=== PATIENT | female | born 1970 | race Caucasian/White ===

== ENCOUNTER 2019-09-11 11:07 | Emergency (ER) | payer OTHER ==
[2019-09-11] MEDS ORDERED: Iopamidol-370 76% 500 ML 1 ML ONE (11:35)
[2019-09-11 12:12] LABS: Bacteria/HPF None Seen HPF (None Seen); Bilirubin 2+ (Negative); Blood, Urine Negative (Negative); Clarity Clear (Clear); Glucose, Urine (Dipstick) Normal (Negative); Leukocyte Negative Leu/uL (Negative); Nitrite 2+ (Negative); Protein, Urine (Dipstick) Negative (Neg-Trace); RBC/HPF 0-3 HPF (0-3); Urobilinogen 6 mg/dL (Less than 2); WBC/HPF 0-3 HPF (0-3)
[2019-09-11 12:30] LABS: #Basophils 0.1 thou/uL (0.0-0.2); #Eosinphils 0.3 thou/uL (0.0-0.7); #Lymphocytes 2.5 thou/uL (1.20-3.40); #Monocytes 0.4 thou/uL (0.11-0.59); #Neutrophils 4.7 thou/uL (1.40-6.50); %Eosinophils 4.3 % (0.0-10.0); %Lymphocytes 31.3 % (21.0-51.0); %Monocytes 4.8 % (0.0-10.0); %Neutrophils 58.6 % (42.0-75.0); Hemoglobin 14.8 g/dL (12.0-16.0); Mean Corpuscular HGB CONC 34.2 g/dL (32.0-36.0); Mean Corpuscular Hemoglobin 32.3 pg (27.0-31.0); Mean Corpuscular Volume 94.4 fL (78.0-98.0); Mean Platelet Volume 6.8 fL (7.4-10.4); Platelet Count 390 thou/uL (130-400); RBC Distribution Width 11.7 % (11.5-14.5); Red Blood Cell (RBC) Count 4.57 mill/uL (4.20-5.40)
[2019-09-11 13:00] LABS: ALT (SGPT) 16 U/L (8-55); AST (SGOT) 18 U/L (5-34); Albumin 4.1 g/dL (3.5-5.0); Alkaline Phosphatase 102 U/L (40-110); Anion Gap 11 mmol/L (10-20); BUN (Urea Nitrogen) 8 mg/dL (7.0-18.7); Bilirubin, Total 0.3 mg/dL (0.2-1.2); Calc. Creatinine Clearance 0 mL/min (70-130); Calcium 8.9 mg/dL (7.8-10.44); Carbon Dioxide 23 mmol/L (22-29); Chloride 106 mmol/L (98-107); Estimated GFR-MDRD 86; Glucose 89 mg/dL (70-105); Lipase 24 U/L (8-78); Protein, Total 7.1 g/dL (6.0-8.3); Sodium 136 mmol/L (136-145)
--- NOTE | 2019-09-11 13:00 | CT ---
CT ABDOMEN AND PELVIS WITH IV CONTRAST: INDICATIONS: Abdominal pain. Bladder pain and pressure. FINDINGS: The lung bases are clear. The liver, spleen and pancreas are unremarkable. The stomach and duodenum a re unremarkable. The adrenal glands are normal. The kidneys are unremarkable. No hydronephrosis or urinary tract calculus. The urinary bladder is mil dly distended and appears unremarkable. Small bowel loops are of normal caliber. The appendix appears normal. The colon is unremarkable. The aorta is of normal caliber. No adenopathy or free fluid. Images through the pelvis show evidence of a hysterectomy. Osseous structures are unremarkable. IMPRESSION: No evidence of acute process. POS: [facility]
[2019-09-11] MEDS ORDERED: cefTRIAXone\\ROCEPHIN 1 GM VIAL ONE (13:53)
[2019-09-11] MEDS ORDERED: Ketorolac Tromethamine 30 MG/ML VIAL ONE (13:53)
[2019-09-11] MEDS ORDERED: Sodium Chloride 0.9% 100 ML ONE (13:54)
== END 2019-09-11 15:54 | disposition home or self-care (01) ==
LOC: EDSEX 11:07 → ERS 11:07
DX: N39.0 Urinary tract infection, site not specified (principal)
CPT/HCPCS: 74177; 80053; 81003; 81015; 83690; 85025; 87086; 96361; 96365; 96375; J0696; J1885; J3490; Q9967

== ENCOUNTER 2019-09-22 06:20 | Emergency (ER) | payer OTHER ==
[2019-09-22] MEDS ORDERED: Ibuprofen 200 MG TAB ONE (06:43)
[2019-09-22] MEDS ORDERED: Cyclobenzaprine 10 MG TAB ONE (06:43)
[2019-09-22 07:00] LABS: Bilirubin Negative (Negative); Blood, Urine Negative (Negative); Clarity Clear (Clear); Glucose, Urine (Dipstick) Normal (Negative); Leukocyte Negative Leu/uL (Negative); Nitrite Negative (Negative); Protein, Urine (Dipstick) Negative (Neg-Trace); Urobilinogen Normal mg/dL (Less than 2)
== END 2019-09-22 07:20 | disposition home or self-care (01) ==
LOC: ERS 06:20
DX: M54.5 Low back pain (principal); F41.9 Anxiety disorder, unspecified; M19.90 Unspecified osteoarthritis, unspecified site; Z79.899 Other long term (current) drug therapy
CPT/HCPCS: 81003; 99284